=== PATIENT | female | born 1985 | race Caucasian/White ===

== ENCOUNTER 2023-07-11 00:35 | Emergency (ER) | payer SELFPAY ==
[~2023-07-11] VITALS: Ht 162.6 cm; Wt 72.0 kg
[2023-07-11 00:54] VITALS: O2SAT 98
[2023-07-11] MEDS ORDERED: KETOROLAC 30MG/ML VIAL IM ONE (02:45)
[2023-07-11 02:59] VITALS: BP 156/98
[2023-07-11] MEDS ORDERED: NAPR-1176 MT (03:06)
[2023-07-11] MEDS ORDERED: LIDO700A15 TP (03:06)
[2023-07-11] MEDS ORDERED: CYCL5TAB MT (03:06)
[2023-07-11 03:17] VITALS: PULSE 80; RESP 18; TEMP 98.1
== END 2023-07-11 03:10 | disposition home or self-care (01) ==
LOC: ER 00:35
DX: R51.9 Headache, unspecified (principal); M25.512 Pain in left shoulder; M54.2 Cervicalgia; I10 Essential (primary) hypertension; V49.59XA Passenger injured in collision with other motor vehicles in traffic accident, initial encounter; Y93.89 Activity, other specified; Y92.89 Other specified places as the place of occurrence of the external cause; Y99.8 Other external cause status
CPT/HCPCS: 81025; 71045; 96372; 99283; J1885; Z7610